=== PATIENT | female | born 1945 | race Caucasian/White ===

== ENCOUNTER 2024-08-09 08:25 | Day surgery (SDC) | payer MEDICARE, SELFPAY ==
--- OUTSIDE RECORDS SUMMARY | 2024-07-09 12:35 | XMS_ITS | Continuity of Care Document ---
Author Organization [facility] Address [address] [address]- [facility] Name Relationship Address Phone LOGAN BORGES spouse Unknown Unavailab le COLBY BORGES child Unknown Unavailable Care Team Providers Care Therapeutic Recreation Specialist Name Role Phone Marco CRYSTAL MOUNTER, Demetra Garcia Primary Care Physician Encounter [facility] Date(s): 06/28/24 - 07/05/24 [place] [id number] [place] [address]- Attending Physician: Trina Duran Admitting Physician: Trina Duran Referring Physician: Trina Duran Encounter Type: Office Visit Allergies, Adverse Reactions, Alerts Substance Criticality Severity Reaction Reaction Severity Status ciprofloxacin 1 possible del erium might have been zolpidem delerium Active doxycycline unknown Active amoxicillin 2 lip swelling rash Active azithromycin 3 Activ e predniSONE chest pain Active diclofenac severe stomach cramps Active penicillins 4 hives Active Voltaren Topical nausea Act adela ertapenem makes me go in sane vertigo Active 1unsure if zolpidem or cipro caused delerium 2Tolerates cefoxitin 3violent N/V, diarrhea 4Tolerates cefoxitin Immunizations Given and Recorded Vaccine Date Status Refusal Reason SARS-CoV-2(COVID-19)mRNA-LNP vac([id number]) 02/09/24 Recorded SARS-CoV-2(COVID-19)mRNA-LNP vac([id number]) 01/23/23 Recorded influenza virus vaccine, inactivated 12/25/23 Give n influenza virus vaccine, inactivated 12/26/22 Kilo rded influenza virus vaccine, inactivated 02/01/22 Kilo rded influenza virus vaccine, inactivated 01/16/21 Kilo rded influenza virus vaccine, inactivated 01/25/19 Give n influenza virus vaccine, inactivated 01/18/16 Give n influenza virus vaccine, inactivated 01/23/15 Kilo rded influenza virus vaccine, inactivated 01/19/14 Kilo rded influenza virus vaccine, inactivated 1 02/04/13 Gi margo influenza virus vaccine, inactivated 2 12/23/11 Gi margo influenza virus vaccine, inactivated 3 01/22/11 Gi margo influenza virus vaccine, inactivated 12/19/09 Give n pneumococcal 20-valent conjugate vaccine 4 09/26/22 Given [id number] bivalent booster vax 04/02/22 Recorded SARS-CoV-2 (COVID-19) mRNA BNT-162b2 vac 06/26/21 Recorded SARS-CoV-2 (COVID-19) mRNA BNT-162b2 vac 01/16/21 Recorded SARS-CoV-2 (COVID-19) mRNA BNT-162b2 vac 06/07/20 Recorded SARS-CoV-2 (COVID-19) mRNA BNT-162b2 vac 06/07/20 Recorded SARS-CoV-2 (COVID-19) mRNA BNT-162b2 vac 05/17/20 Recorded SARS-CoV-2 (COVID-19) mRNA BNT-162b2 vac 05/16/20 Recorded Influenza Virus Vaccine (oldterm) 12/20/19 Recorde d Influenza Virus Vaccine (oldterm) 5 03/26/18 Given Influenza Virus Vaccine (oldterm) 6 11/30/08 Given Influenza Virus Vaccine (oldterm) 12/22/06 Given pneumococcal 23-valent vaccine 09/30/18 Given zoster vaccine, inactivated 06/11/18 Recorded zoster vaccine, inactivated 7 12/20/17 Recorded Diphtheria/Tet/Pertussis, Acel (oldterm) 8 03/26/18 Given Hepatitis A Adult Vaccine 06/29/15 Given pneumococcal 13-valent vaccine 02/25/14 Given influ virus vac, H1N1, inactive(oldterm) 9 01/30/12 Given Tet/Diphth/Acel, Pertussis (oldterm) 02/24/08 Give n Influenza Inactive (IM) (oldterm) 02/24/08 Given Pneumococcal Vaccine (oldterm) 03/24/05 Given Tetanus Toxoid Vaccine (oldterm) 03/24/98 Given 1Admin Note: [facility] pt states she got it a week and a half ago 2Admin Note: [employer]EMPL[employer] 3Admin Note: work 4Result Comment: [id number] 5Admin Note: left arm 6Admin Note: [employer] [facility] 7[facility] History[facility] 8Admin Note: right arm 9Admin Note: rcvd elsewhere Medications apixaban 5 mg oral tablet 1 tablet = 5 mg, By Mouth, 2 times a day, # 180 tablet, 1 Refills, Maintenance, 12/25/23 8:45:00 AM EDT, Tablet, [facility]/pharmacy #[id number], 167.5, cm, 12/25/23 8:24:00 EDT, Height, 63, kg, 11/06/23 15:15:00 EDT, Dry Weight Start Date: 12/25/23 Stop Date: 06/22/24 Status: Ordered Quantity: 180.0 Unit: tablet Repeat number: 2 levothyroxine 0.1 mg oral tablet 1 tablet, By Mouth, Daily, # 90 tablet, 1 Refills, Maintenance, 03/21/24 11:47:00 AM EST, [facility]/pharmacy #[id number], 170, cm, 03/10/24 12:28:00 EST, Height, 64.6, kg, 03/04/24 11:43:00 EST, Dry Weight Start Date: 03/21/24 Status: Ordered Quantity: 90.0 Unit: tablet Repeat number: 2 LORazepam 0.5 mg oral tablet 1 tablet = 0.5 mg, By Mouth, Daily, PRN as needed for anxiety, Do NOT take on the same day that youtake morphine, # 30 tablet, 2 Refills, Maintenance, 03/01/24 8:43:00 PM EST, [facility]/pharmacy #[id number], 170, cm, 02/17/24 15:17:00 EST, Height, 64.9, kg, 02/10/24 10:58:00 EST, Dry Weight Start Date: 03/01/24 Status: Ordered Quantity: 30.0 Unit: tablet Repeat number: 3 Multivitamin 0 Refills, Maintenance, 02/17/24 3:16:00 PM EST, Partial fill upon patient request if the prescription is for a schedule II opioid drug. Start Date: 02/17/24 Status: Ordered Repeat number: 1 Tylenol 325 mg oral tablet 650 mg, 2, tablet, By Mouth, Every 4 hours, Refills 0, Maintenance, 05/12/24 10:17:00 AM EST, Partial fill upon patient request if the prescription is for a schedule II opioid drug. 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 Active Non-ischemic cardiomyopathy Confirmed Active Chemotherapy-induced nausea and vomiting Confirmed Active CLL (chronic lymphocytic leukemia) 2 Confirmed Active Diverticulitis sgmoid abscess 3 Confirmed 08/18/16 Active Transaminitis Confirmed Active Maintenance chemotherapy Confirmed Active Anxiety, generalized Confirmed Active Generalized arthritis Confirmed Active Graves disease Confirmed Active History of bilateral total hip arthroplasty Confirmed Active HTN (hypertension) Confirmed Active Hypothyroid 4 Confirmed Active Ileostomy present Confirmed Active 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 Confirmed Active Low back pain without sciatica Confirmed Active Recurrent carcinoma of ovary Confirmed Active Metastasis to liver Confirmed Active Numbness of right anterior thigh Confirmed Active Osteoarthrosis, hip Confirmed Active Osteopenia 5 Confirmed Active Proteinuria Confirmed Active Renal anomaly 6 Confirmed Active Stercoral colitis Confirmed Active Thrombocytopenia Confirmed Active 1after hyperthyroidism resolved 2foolowed by hematology 3per CT 4GRAVES RUSSO 5neg 1.6 spine;normal hip;farx 7.9/0.9 6needs ultraSOUND Social History Social History Type Response Smoking Status Never smoker entered on: 04/03/15 Sex Sex Representation Female (finding) Patient Care team information Care Team Personnel Name: Jaky Parrish Position: [facility] Onco RN Member Role: Primary Care Nurse Name: Amy Bailey RN Position: [facility] RN Member Role: Primary Care Nurse Name: Gertrudis Elias RN Position: [facility] RN Member Role: Primary Care Nurse Name: Dc Chavez RN Position: [facility] RN Member Role: Primary Care Nurse Name: Enid Zimmerman RN Position: [facility] RN Supv Member Role: Primary Care Nurse Name: Jaky Branham Position: S RN Member Role: Primary Care Nurse Name: Demetra Lara NP Position: [facility] PCO Associate Professional Member Role: PCP Address: [address] [place] [id number]- Telecom: Name: Jacek Phillips RN Position: [facility] RN Member Role: Primary Care Nurse Name: Denise Ward RN Position: [facility] RN Member Role: Primary Care Nurse Name: Byron Granger LPN Position: [facility] RN Member Role: Primary Care Nurse Name: Shirley Pires RN Position: [facility] AMB Nurse Member Role: Primary Care Nurse Name: Samir Covington Jr, RN Position: [facility] RN Member Role: Primary Care Nurse Name: Boby Kline RN Position: [facility] RN Member Role: Primary Care Nurse Name: Pradeep Doyle RN Position: [facility] AMB Nurse Member Role: Primary Care Nurse Name: Lianet Pang RN Position: [facility] RN Member Role: Primary Care Nurse Name: Katelynn Westbrook RN Position: [facility] Outreach Member Role: Primary Care Nurse Name: Cuba Osorio RN Position: [facility] RN Member Role: Primary Care Nurse Name: Jill Rowan RN Position: [facility] Onco RN Member Role: Primary Care Nurse Name: Mariam Elliott RN Position: [facility] Onco RN Member Role: Primary Care Nurse Name: Elis Wu RN Position: [facility] RN Member Role: Primary Care Nurse Name: Jeanne Gonzalez RN Position: [facility] Onco RN Member Role: Primary Care Nurse Name: Erika Marques RN Position: [facility] Onco RN Member Role: Primary Care Nurse Name: Jaky James LPN Position: [facility] RN Member Role: Primary Care Nurse Name: Nuria Barr Position: [facility] RN Member Role: Primary Care Nurse Name: Francisco Ray RN Position: [facility] RN Member Role: Primary Care Nurse Name: Riley Looney RN Position: [facility] RN Member Role: Primary Care Nurse Name: Tomer Chaves RN Position: [facility] RN Member Role: Primary Care Nurse Name: Kalin Sandoval RN Position: [facility] Onco RN Member Role: Primary Care Nurse Name: Teresa Hassan RN Position: [facility] Onco RN Member Role: Primary Care Nurse Name: Tucker Lynn RN Position: [facility] SN RN Member Role: Primary Care Nurse Name: Enid Francis RN Position: [facility] Onco RN Member Role: Primary Care Nurse Name: Gaby Sandra RN Position: [facility] RN Member Role: Primary Care Nurse Name: Gabby Tee RN Position: [facility] RN Member Role: Primary Care Nurse Name: Violette Seals RN Position: [facility] Onco RN Member Role: Primary Care Nurse Name: Shahrzad Ashley LPN Position: [facility] RN Member Role: Primary Care Nurse Name: Susan RNMira Position: [facility] RN Member Role: Primary Care Nurse Name: Gregg Mello RN Position: [facility] RN Member Role: Primary Care Nurse Name: Trina Mello RN Position: [facility] Tempering Kiln Tender Member Role: Primary Care Nurse Name: Yen Blunt RN, I Position: [facility] RN Member Role: Primary Care Nurse Care Team Related Persons Name: LOGAN BORGES Name: COLBY BORGES Insurance Providers Guarantor name: JEANNE BORGES Health Plan Information #: 2 Payer: MED[employer] Member Number: [id number] Policy Number: NA Group Number: NA Health Plan Information #: 1 Payer: MEDICARE PART B OUTPT Member Number: [id number] Policy Number: NA Group Number: NA
--- OUTSIDE RECORDS SUMMARY | 2024-07-09 12:35 | XMS_ITS | Data Portability ---
Author Organization [facility], [facility] Address [address] [place] [address] Care Team Providers Care Parliamentary Counsel Name Role Phone RASHELLILISANTYARSENUR Primary Care Provider Unavaila ble Assessment Encounter Date Assessment Date Assessment LastModified by Organization Details LastModified Time 11/08/2015 11/08/2015 Patient is managing left hip pain, continuing with icing at night, TP positioning and stretching ex. She will call for PT follow up after her visit with Dr Parker. Not available 11/08/2015 16:49:27 03/14/2016 03/14/2016 Patient is a 70 year old female with findings most consistent with left hip pain and mobility limitations post THR. Optimal score for difficulty with positioning is 62%. Patient has significant functional limitation in their activities of daily living and exercise capacity. Patient Goals: resume walking, workouts without pain; resume positioning in supine, bending, negotiating stairs without pain. Clinical Goals: 1. Demonstrate symmetric pain free active, passive and resisted motions of the trunk and lower extremities. 2. Demonstrate sufficient muscular endurance of core and LEs to meet functional demands. 3. Reduce Optimal score for difficulty with positioning to 0%. Skilled physical therapy is needed to safely and progressively address impairments and functional limitations as outlined above. Treatment Plan: Patient to return 1-2 times per week for 6-8 weeks. We expect significant improvement in pain, impairment and function in this time frame. Treatment to Include: Therapeutic exercise and manual therapy and modalities as needed. Not available 03/14/2016 12:39:22 03/20/2016 03/20/2016 Patient continues with tenderness along scar left hip. Gait with cueing improves the lateral sway in right mid stance. Core strength 4-/5. Continue with PT in 2 weeks. Not available 03/20/2016 15:49:06 03/28/2016 03/28/2016 Patient is improving in mobility and strength of left LE and trunk. Continue with HEP, follow up next week. Not available 03/30/2016 07:47:58 04/02/2016 04/02/2016 Patient has been seen x4 for rehab post left THR. She has full ROM, able to perform closed chain ex and will continue with water ex, hopping, side hopping and swimming. Optimal score for positioning is 1- <20% difficulty due to discomfort with left sidelying. She will continue with HEP and is discharged from PT at this time. Not available 04/02/2016 13:23:55 Plan of Treatment Reminders Order Date Submit Date Provider Last Modified By Organization Details Last Modified Time Details Appointments None record ed. Lab None record ed. Referral None record ed. Procedures None record ed. Surgeries None record ed. Imaging None record ed. Medication Orders None record ed. Patient TargetsNo targets recorded. Patient InstructionsNo instructions recorded. Reason for Referral None Reported. Problems Name Problem SNOMED Code Status Onset Date Resolution Date Notes Provider Name and Address Organization Details Recorded Time Hip pain 70809663 Active 03/14/20 16 Sandra Mccullough, PT [address] [place], [address] , [facility] 03/14/2016 12:35:33 Problem Notes None recorded. Procedures Surgical History Date Name Laterality Status Provider Name and Address Organization Details Recorded Time 7 14904: Therapeutic Exercise completed Sandra Mccullough, PT [address] [place], [address], [facility] 04/02/2016 13:24:25 7 49534: Therapeutic Exercise completed Sandra Mccullough, PT [address] [place], [address], [facility] 03/30/2016 07:44:48 7 56537: Manual Therapy completed Sandra Mccullough, PT [address] [place], [address], [facility] 03/30/2016 07:44:40 6 96569: Therapeutic Exercise completed Sandra Mccullough, PT [address] [place], [address], [facility] 03/20/2016 15:44:20 6 52395: PT Evaluation completed Sandra Mccullough, PT [address] [place], [address], [facility] 03/14/2016 12:35:12 6 79334: Therapeutic Exercise completed Sandra Mccullough, PT [address] [place], [address], [facility] 11/08/2015 16:31:07 6 77598: Ultrasound (1:1) completed Sandra Mccullough, PT [address] [place], [address], [facility] 11/08/2015 16:31:02 6 68339: Therapeutic Exercise completed Sandra Mccullough, PT [address] [place], [address], [facility] 11/06/2015 17:30:19 6 94228: Ultrasound (1:1) completed Sandra Mccullough, PT [address] [place], [address], [facility] 11/06/2015 17:30:10 6 94812: Therapeutic Exercise completed Sandra Mccullough, PT [address] [place], [address], [facility] 10/30/2015 13:57:38 6 80517: Manual Therapy completed Sandra Mccullough, PT [address] [place], [address], [facility] 10/30/2015 13:57:28 6 21462: Ultrasound (1:1) completed Sandra Mccullough, PT [address] [place], [address], [facility] 10/30/2015 13:56:10 6 41094: Manual Therapy completed Sandra Mccullough, PT [address] [place], [address], [facility] 10/26/2015 10:10:45 6 77186: Ultrasound (1:1) completed Sandra Mccullough, PT [address] [place], [address], [facility] 10/26/2015 10:09:45 6 73270: Therapeutic Exercise completed Sandra Mccullough, PT [address] [facility], [address], [facility] 10/25/2015 13:22:55 6 05995: Manual Therapy completed Sandra Mccullough, PT [address] [facility], [address], [facility] 10/25/2015 13:22:47 6 40382: Ultrasound (1:1) completed Sandra Mccullough, PT [address] [facility] [place], [address], [facility] 10/25/2015 13:17:42 6 26321: Therapeutic Exercise completed Sandra Mccullough, PT [address] [facility] [place], [address], [facility] 10/18/2015 10:29:31 6 76074: Ultrasound (1:1) completed Sandra Mccullough, PT [address] [place], [address], [facility] 10/18/2015 10:29:26 6 99982: Therapeutic Exercise completed Sandra Mccullough, PT [address] [facility] [place], [address], [facility] 10/16/2015 16:32:47 6 89088: Ultrasound (1:1) completed Sandra Mccullough, PT [address] [place], [address], [facility] 10/16/2015 16:32:44 6 27252: PT Evaluation completed Sandra Mccullough, PT [address] [place], [address], [facility] 10/09/2015 19:01:11 5 <strong>Pain</s ashok> Assessment and Follow-up (G8730) completed Pao Pritchard, OT [address] [place], [address], [facility] 04/27/2014 13:33:32 5 <strong>Falls</ strong> Risk Assessment - No Risk (1101F) completed Pao Surjit Handyum, OT [address] [place], [place], , [facility] 04/27/2014 13:33:32 5 <strong>Functio nal</strong> Outcome w/ POC (G8539) completed Pao Surjit Handyum, OT [address] [place] [address], , [facility] 04/27/2014 13:33:32 5 <strong>Tobacco </strong> Non-User (1036F) completed Pao Surjit Handyum, OT [address] [place] [address], , [facility] 04/27/2014 13:33:32 5 <strong>BMI</st dominga> Normal - No Follow-up Required (G8420) completed Pao Handyum, OT [address], [place], , [facility] 04/27/2014 13:33:32 5 Current <strong>Medicat ions</strong> not Documented, Reason not Given (G8428) completed Pao Handyum, OT [address] [place], [place], , [facility] 04/27/2014 13:33:32 Imaging Results None recorded. Procedure Notes None recorded. Medical Equipment None Reported. Allergies Allergen ID Allergen Name Allergen Category Reaction Reaction Severity Criticality Documentation Date Start Date Code Code System Note Provider Name and Address Organization Details Recorded Time 484051 Flagyl medicatio n Not available Not available Not available 07/03/2015 6 RxNorm Nikita Hinojosa DPM [address] [place], [place] [address], [address], [facility] 6 10:50:48 926027 Cipro medicatio n Not available Not available Not available 07/03/2015 3 RxNorm Nikita Hinojosa DPM [address] [place], [place] [address], [address], [facility] 6 10:50:48 Medications Name Sig Start Date Stop Date Status Note LastModified by Organization Details LastModified Time levothyroxine active Not Available Not Available Not Available multivitamin active Not Available Not Available Not Available Vitals None Recorded Social History None recorded. Functional Status None recorded. Mental Status None recorded. Family History Nothing Reported. Medical History No medical history recorded. Gynecological HistoryNo gynecological history recorded. Obstetrics History GPAL:G 0 P 0 0 0 0 Past Encounters Encounter ID Performer Location Encounter Start Date Encounter Closed Date Diagnosis/Indication Diagnosis SNOMED-CT Code Diagnosis ICD10 Code Diagnosis Note [id number] [facility], [address] [address] 04/27/2014 12:17:38 04/28/2014 08:57:47 Fracture of distal end of radius 805468564 [id number] Pao Pritchard, OT Physical Therapy, [address] [address] 05/04/2014 09:32:33 05/04/2014 12:11:44 Fracture of distal end of radius 297571094 [id number] Pao Pritchard, OT Physical Therapy, [address] [address] 05/10/2014 09:59:59 05/11/2014 09:25:45 Fracture of distal end of radius 183872328 [id number] Pao Pritchard, OT Physical Therapy, [address] [address] 05/12/2014 10:02:05 05/12/2014 14:57:42 Fracture of distal end of radius [id number] Physical Therapy, [address] [address] 05/17/2014 10:25:32 05/18/2014 09:28:24 Fracture of distal end of radius 131215295 [id number] Pao Pritchard, OT Physical Therapy, [address] [address] 05/24/2014 09:57:49 05/24/2014 16:42:32 Fracture of distal end of radius 724959069 [id number] Pao Pritchard, OT Physical Therapy, [address] [address] 06/01/2014 10:01:05 06/02/2014 10:55:36 Fracture of distal end of radius 431673562 [id number] Pao Pritchard, OT Physical Therapy, [address] [address] 06/14/2014 09:57:06 06/14/2014 12:04:52 Fracture of distal end of radius 017754929 [id number] Pao Pritchard, OT Physical Therapy, [address] [address] 06/22/2014 14:51:12 06/22/2014 16:25:38 Fracture of distal end of radius [id number] [id number] Physical Therapy, [address] [address] 06/29/2014 16:23:16 06/30/2014 10:25:27 Fracture of distal end of radius 552910349 [id number] Nikita Hinojosa DPM Podiatry, [address] [address] 07/03/2015 09:54:29 07/03/2015 10:46:26 Metatarsalgia 84923591 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 61686691 M21.6X9 [id number] Nikita Hinojosa DPM Podiatry, [address] [address] 08/15/2015 08:23:44 08/15/2015 08:53:54 Metatarsalgia 00085797 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 08685938 M21.6X9 [id number] Nikita Hinojosa DPM Podiatry, [address] [address] 09/22/2015 08:55:52 09/22/2015 09:18:02 Metatarsalgia 22671037 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 00996377 M21.6X9 [id number] Sandra Mccullough PT Physical Therapy, [address] [address] 10/09/2015 16:27:12 10/10/2015 08:29:38 Hip pain 66683083 M25.620 [id number] Nikita Hinojosa DPM Podiatry, [address] [address] 10/13/2015 09:39:22 11/06/2015 16:38:09 Metatarsalgia 08782703 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 51342082 M21.6X9 [id number] Sandra Mccullough, PT Physical Therapy, [address] [place] [address] 10/16/2015 15:47:05 10/16/2015 16:54:10 Hip pain 67198505 M25.579 [id number] Sandra Mccullough, PT Physical Therapy, [address] [place] [address] 10/18/2015 09:25:24 10/18/2015 10:46:03 Hip pain 68089511 M25.044 [id number] Sandra Mccullough, PT Physical Therapy, [address] [place] [address] 10/24/2015 13:01:37 10/25/2015 13:45:27 Hip pain 58354496 M25.928 [id number] Sandra Mccullough, PT Physical Therapy, [address] [place] [address] 10/26/2015 08:55:29 10/26/2015 09:29:57 Hip pain 15694320 M25.155 [id number] Sandra Mccullough, PT Physical Therapy, [address] [place] [address] 10/30/2015 09:00:20 10/30/2015 14:29:35 Hip pain 68510607 M25.475 [id number] Sandra Mccullough, PT Physical Therapy, [address] [place] [address] 11/06/2015 16:52:24 11/07/2015 09:53:08 Hip pain 79070501 M25.634 [id number] Sandra Mccullough, PT Physical Therapy, [address] [place] [address] 11/08/2015 15:57:05 11/09/2015 09:37:37 Hip pain 23253526 M25.172 [id number] Sandra Mccullough, PT Physical Therapy, [address] [place] [address] 03/14/2016 08:01:24 03/14/2016 14:29:28 Hip pain 31144176 M25.884 [id number] Sandra Mccullough, PT Physical Therapy, [address] [address] 03/20/2016 15:17:01 03/20/2016 16:03:47 Hip pain 01500898 M25.105 [id number] Sandra Mccullough PT Physical Therapy, [address] [place] [address] 03/28/2016 08:55:27 04/01/2016 11:41:43 Hip pain 54153824 M25.480 [id number] Sandra Mccullough PT Physical Therapy, [address] [address] 04/02/2016 12:58:11 04/02/2016 14:10:56 Hip pain 48573242 M25.552 Health Concerns Section Related Observation LastModified by Organization Detai ls LastModified Time None Recorded Concern Status LastModified by Organization Details LastModified Time None Recorded Advance Directives Directive None Recorded Payers Encounter Date Sequence Insurance Name Policy Number Policy Crow Covered Member ID Crow Member ID Guarantor Name 11/08/2015 1 MEDICARE B-CO: [employer] Mariama K Trainer [id number] Mariama K Trainer 11/08/[address] [facility] - ENHANCE (MEDICARE SUPPLEMENT) Mariama K Trainer [id number] Mariama K Trainer 03/14/2016 1 MEDICARE B-CO: [employer] Mariama K Trainer [id number] Mariama K Trainer 03/14/[address] [facility] - ENHANCE (MEDICARE SUPPLEMENT) Mariama K Trainer [id number] Mariama K Trainer 03/20/2016 1 MEDICARE B-CO: [employer] Mariama K Adali [id number] Mariama K Adali 03/20/[address] [facility] - ENHANCE (MEDICARE SUPPLEMENT) Mariama K Adali [id number] Mariama K Trainer 03/28/2016 1 MEDICARE B-CO: [employer] Mariama K Adali [id number] A Mariama K Adali 03/28/[address] [facility] - ENHANCE (MEDICARE SUPPLEMENT) Mariama K Trainer [id number] Mariama Chen Adali 04/02/2016 1 MEDICARE B-CO: [facility] Mariama Chen Adali [id number] A Mariama Chen Trainer 04/02/2016 2 [facility] - ENH[facility] (MEDICARE SUPPLEMENT) Mariama Chen Adali [id number] Mariama Chen Trainer Notes Date Note Type Note Provider Name and Address Organization Details Recorded Time 03/14/2016 text/html Patient presents with chief c/o left hip pain s/p THR Jan 29, 2016. She received PT and cortisone inj into the hip earlier this year, prior to her Nov surgery. She has some difficulty positioning at night, interfering with her sleep at times. She has difficulty with bending, squating and kneeling. Climbing stairs and walking long distances is difficult. She received some PT after her surgery and presents today for gait training and strengthening. She enjoys walking and gardening. She believes her health is very good at present. Sandra Mccullough, PT [address] [place], [address], [facility] 03/14/2016 13:00:42 OBGyn Episode No OBEpisode recorded.
[2024-08-03 08:31] VITALS: BMI 22.8
--- NOTE | 2024-08-05 15:14 | HO.ANESPROP2 ---
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 Proteinuria Presence of permanent cardiac pacemaker Osteopenia Osteoarthrosis Numbness Non-ischemic cardiomyopathy Metastasis to liver Maintenance chemotherapy Back pain On anticoagulant therapy Ileostomy present Thyroid disease HTN (hypertension) Graves' disease Arthritis Abscess Diverticulitis of sigmoid colon CLL (chronic lymphocytic leukemia) History of chemotherapy Carcinoma of right ovary, stage 4 Atrial fibrillation Anxiety Surgical History Surgical History H/O colonoscopy Hx of laparoscopy History of permanent cardiac pacemaker placement History of radiofrequency ablation procedure for cardiac arrhythmia History of bilateral total hip arthroplasty S/P JEANNIE-BSO Social History Social History Patient Tobacco Use Status: Never used Tobacco Use of substances other than those prescribed or required for medical reasons: No Advance Directives: No Advance Directives Information Provided: Yes Advance Directives on File: No Patient : No : No Meds Allergies Allergy/AdvReac Type Severity Reaction Status Date / Time amoxicillin Allergy Swelling Verified 08/03/24 08:26 azithromycin Allergy Unknown Verified 08/03/24 08:26 ciprofloxacin Allergy Confusion Verified 08/03/24 08:26 diclofenac [From Voltaren] Allergy Nausea Verified 08/03/24 08:26 doxycycline Allergy Unknown Verified 08/03/24 08:26 ertapenem Allergy Agitated Verified 08/03/24 08:26 Penicillins Allergy Hives Verified 08/03/24 08:26 prednisone Allergy Chest Pain Verified 08/03/24 08:26 Home Medications ?Medication ?Instructions ?Recorded ?Confirmed ?Last Taken ?Type acetaminophen 325 mg tablet 650 mg PO Q4H PRN Pain 08/03/24 08/03/24 Unknown History apixaban 5 mg tablet (Eliquis) 5 mg PO BID 08/03/24 08/03/24 08/09/24 History levothyroxine 100 mcg tablet 100 mcg PO DAILY 08/03/24 08/03/24 08/09/24 History lorazepam 0.5 mg tablet 0.5 mg PO DAILY PRN Anxiety 08/03/24 08/03/24 Unknown History multivitamin 1 tab PO DAILY 08/03/24 08/03/24 Unknown History Exam Height,Weight and Vital Signs: Height 5 ft 6.93 in Weight 65.8 kg Assessment and Plan Assessment Anesthesia Assessment: Chart Reviewed Documented by User: Luz Mario MD 08/09/24 09:48 PMFSH Past Medical History Medical History Port-A-Cath in place Transaminitis Thrombocytopenia 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 Proteinuria Presence of permanent cardiac pacemaker Osteopenia Osteoarthrosis Numbness Non-ischemic cardiomyopathy Metastasis to liver Maintenance chemotherapy Back pain On anticoagulant therapy Ileostomy present Thyroid disease HTN (hypertension) Graves' disease Arthritis Abscess Diverticulitis of sigmoid colon CLL (chronic lymphocytic leukemia) History of chemotherapy Carcinoma of right ovary, stage 4 Atrial fibrillation Anxiety Family History Family history of problems with anesthesia: No Surgical History Surgical History H/O colonoscopy Hx of laparoscopy History of permanent cardiac pacemaker placement History of radiofrequency ablation procedure for cardiac arrhythmia History of bilateral total hip arthroplasty S/P JEANNIE-BSO History of Problems with Anesthesia: No Social History Social History Patient Tobacco Use Status: Never used Tobacco Use of substances other than those prescribed or required for medical reasons: No Advance Directives: No Advance Directives Information Provided: Yes Advance Directives on File: No Patient : No : No Meds Allergies Allergy/AdvReac Type Severity Reaction Status Date / Time amoxicillin Allergy Swelling Verified 08/03/24 08:26 azithromycin Allergy Unknown Verified 08/03/24 08:26 ciprofloxacin Allergy Confusion Verified 08/03/24 08:26 diclofenac [From Voltaren] Allergy Nausea Verified 08/03/24 08:26 doxycycline Allergy Unknown Verified 08/03/24 08:26 ertapenem Allergy Agitated Verified 08/03/24 08:26 Penicillins Allergy Hives Verified 08/03/24 08:26 prednisone Allergy Chest Pain Verified 08/03/24 08:26 Home Medications ?Medication ?Instructions ?Recorded ?Confirmed ?Last Taken ?Type acetaminophen 325 mg tablet 650 mg PO Q4H PRN Pain 08/03/24 08/03/24 Unknown History apixaban 5 mg tablet (Eliquis) 5 mg PO BID 08/03/24 08/03/24 08/09/24 History levothyroxine 100 mcg tablet 100 mcg PO DAILY 08/03/24 08/03/24 08/09/24 History lorazepam 0.5 mg tablet 0.5 mg PO DAILY PRN Anxiety 08/03/24 08/03/24 Unknown History multivitamin 1 tab PO DAILY 08/03/24 08/03/24 Unknown History Exam Airway Mallampati Class: II TM Dist: >3cm Neck ROM: Limited Heart: rrr Lungs: cta Assessment and Plan Assessment Anesthesia Assessment: Anesthesia Plan Discussed Final Anesthetic Review Family History of Problems with Anesthesia: No History of Problems with Anesthesia: No NPO: Yes ASA Class: III Final Preanesthetic Review: No Changes in Pt Med Stat, Meds/Allgs Chart Reviewed, Consent Obtained/Reviewed and Anes Risks/Benef Reviewed Patient Risk: Intermediate Procedure Risk: Low Anesthetic Plan Anesthetic Plan: MAC: Disposition: Standard PACU
[2024-08-09 09:26] VITALS: BP 126/72; PULSE 76; RESP 16; TEMP 36.5; O2SAT 100
[2024-08-09] MEDS: Tetracaine HCl/PF 0.5% Oph Sol 4 ML DROPS 1 DROP EYE-LEFT (09:29)
[2024-08-09] MEDS: Lactated Ringers 500 ML 50 ML IV (09:30)
[2024-08-09] MEDS: Cyclopentolate 1 % Ophth Sol 2 ML DRPBTL 1 DROP EYE-LEFT ×3 (09:32→09:40)
[2024-08-09] MEDS: Tropicamide 1 % Ophth Sol 3 ML BTL 1 DROP EYE-LEFT ×3 (09:33→09:42)
[2024-08-09] MEDS: Ketorolac Tromethamine 0.5% Op 5 ML DROPS 1 DROP EYE-LEFT ×3 (09:34→09:43)
[2024-08-09] MEDS: Phenylephrine HCL 2.5% Oph SoL 2 ML BOTTLE 1 DROP EYE-LEFT ×3 (09:36→09:43)
--- NOTE | 2024-08-09 10:31 | MHC.SHP ---
Pre-Procedural Eval Section A - 24 Hr Update-Section A only Date of Service: 08/09/24 The patient is an INPATIENT: No Changes since office visit: No Cold of Flu in the past 2 weeks, No New Medical Problems, No Changes in Medication and No Patient answered all questions The patient has been examined within 24 hours of the surgical procedure. The History & Physical has been completed within 30 days and I have reviewed it.: Yes Section B - Complete if H&P > 30 days Chief Complaint: Age-related nuclear cataract, left eye Allergies: Allergies Allergy/AdvReac Type Severity Reaction Status Date / Time amoxicillin Allergy Swelling Verified 08/03/24 08:26 azithromycin Allergy Unknown Verified 08/03/24 08:26 ciprofloxacin Allergy Confusion Verified 08/03/24 08:26 diclofenac [From Voltaren] Allergy Nausea Verified 08/03/24 08:26 doxycycline Allergy Unknown Verified 08/03/24 08:26 ertapenem Allergy Agitated Verified 08/03/24 08:26 Penicillins Allergy Hives Verified 08/03/24 08:26 prednisone Allergy Chest Pain Verified 08/03/24 08:26 Plan Diagnosis/Plan: Unchanged I have reviewed the history and physical and performed a pertinent physical examination on my patient. No changes have occurred unless specified. Time Spent With Patient Time: Total time managing care of this patient today ____ minutes.
--- NOTE | 2024-08-09 10:32 | HO.PNOPHT ---
Ophthalmology Procedure Procedure Date of Service: 08/09/24 Ophthalmology Viscoelastic: Healon Duet Dual Pack Pro Ophthalmology Lenses: IOL Acrysof MP - [id number] (14) Procedure Notes: PREOPERATIVE DIAGNOSIS: Decreased visual acuity left eye secondary to cataract POSTOPERATIVE DIAGNOSIS: Same PROCEDURE: Left cataract extraction with intraocular lens insertion SURGEON: Jame Calderon M.D. ANESTHESIA: Topical/MAC ESTIMATED BLOOD LOSS: None COMPLICATIONS: None After obtaining informed consent, the patient was brought to the operation room suite and placed in the supine position. After adequate sedation per anesthesia, topical drops of Tetracaine were given to the left eye. The eye was then prepped and draped in the usual sterile fashion. The operating room microscope was then positioned over the operative eye and a lid speculum placed. A paracentesis was created. Viscoelastic was then instilled into the anterior chamber. A three plane incision was then created temporally, utilizing a 2.85 mm keratome. Capsulotomy forceps were then utilized to create a circular tear capsulotomy. Hydrodissection and hydrodelineation were carried out until adequate mobilization of the nucleus occurred. Phacoemulsification was then utilized to remove the dense central nucleus followed by removal of the cortical material utilizing the automated aspiration irrigation unit. Viscoat elastic was instilled into the posterior capsular bag followed by placement of a posterior chamber intraocular lens without difficulty. The residual Viscoat elastic was then removed utilizing the automated IA machine. The wound was check and found to be watertight. The patient tolerated the procedure well and the lid speculum was removed. Intracameral injection of Vigamox 0.1 mL followed by a subtenon injection of Kenalog-40 0.2 mL were administered. The patient will be seen in the a.m.
[2024-08-09 10:37] LABS: Hematocrit 39.9 % (37.0-47.0); Hemoglobin 11.5 g/dl (12.0-16.0); Mean Corpuscular HGB Conc 28.8 g/dl (31.0-35.0); Mean Corpuscular Hemoglobin 28.3 pg (27.0-33.0); Mean Platelet Volume 9.5 fL (9.4-12.3); Red Blood Count 4.07 X10*6/uL (4.20-5.50); Red Cell Distribution Width 15.5 % (11.0-16.0)
[2024-08-09 10:42] LABS: White Blood Count 191.9 X10*3/uL (4.8-10.8)
[2024-08-09 11:23] LABS: Platelet Count 69 X10*3/uL (160-400)
[2024-08-09 11:56] VITALS: BP 122/74; PULSE 63; RESP 16; TEMP 36.6; O2SAT 97
== END 2024-08-09 12:10 | disposition home or self-care (01) ==
PROVIDERS: Anesthesiology; PCP Nurse Practitioner Family; Visit Provider Ophthalmology
PROC: (CPT 66985; principal; 2024-08-09 11:00)
DX: H25.12 Age-related nuclear cataract, left eye (principal); H52.4 Presbyopia; Z83.511 Family history of glaucoma; H40.013 Open angle with borderline findings, low risk, bilateral; H18.413 Arcus senilis, bilateral; H43.393 Other vitreous opacities, bilateral; E05.00 Thyrotoxicosis with diffuse goiter without thyrotoxic crisis or storm; C91.50 Adult T-cell lymphoma/leukemia (HTLV-1-associated) not having achieved remission; C78.7 Secondary malignant neoplasm of liver and intrahepatic bile duct; I10 Essential (primary) hypertension; I48.91 Unspecified atrial fibrillation; I42.8 Other cardiomyopathies; Z92.21 Personal history of antineoplastic chemotherapy; Z88.0 Allergy status to penicillin; Z88.1 Allergy status to other antibiotic agents; Z88.5 Allergy status to narcotic agent; Z79.01 Long term (current) use of anticoagulants; Z79.899 Other long term (current) drug therapy
CPT/HCPCS: 66984; 36415; 85027; J2250; J3301; V2630

== ENCOUNTER 2024-08-23 06:21 | Day surgery (SDC) | payer MEDICARE, SELFPAY ==
[2024-08-03 08:38] VITALS: BMI 22.8
--- OUTSIDE RECORDS SUMMARY | 2024-08-10 14:01 | XMS_ITS | Continuity of Care Document ---
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 Name Role Phone Marco LOBO, Demetra Garcia Primary Care Physician [phone] Encounter [facility] Date(s): 07/28/24 - 08/04/24 Pre Op Overflow [address], [place] [address] Attending Physician: Kg DIAMOND, Kelsey Rutherford Referring Physician: Yumiko CHRISTIAN, Jame Bee Encounter Type: Office Visit Allergies, Adverse Reactions, Alerts Substance Criticality Severity Reaction Reaction Severity Status ciprofloxacin 1 possible del erium might have been zolpidem delerium Active doxycycline unknown Active amoxicillin 2 lip swelling rash Active penicillins 3 hives Active azithromycin 4 Activ e predniSONE chest pain Active diclofenac severe stomach cramps Active Voltaren Topical nausea Act adela ertapenem makes me go in sane vertigo Active 1unsure if zolpidem or cipro caused delerium 2Tolerates cefoxitin 3Tolerates cefoxitin 4violent N/V, diarrhea Immunizations Given and Recorded Vaccine Date Status Refusal Reason SARS-CoV-2(COVID-19)mRNA-LNP vac(sie090) 02/09/24 Recorded SARS-CoV-2(COVID-19)mRNA-LNP vac(afw387) 01/23/23 Recorded influenza virus vaccine, inactivated 12/25/23 [...] pneumococcal 20-valent conjugate vaccine 4 09/26/22 Given [id number] bivalent booster vax 04/02/22 Recorded SARS-CoV-2 (COVID-19) [...] Toxoid Vaccine (oldterm) 03/24/98 Given 1Admin Note: [facility] pt states she got it a week and a half ago 2Admin Note: [employer] 3Admin Note: work 4Result Comment: [id number] 5Admin Note: left arm 6Admin Note: [employer] [facility] 7Location History: [facility] 8Admin Note: right arm 9Admin Note: rcvd elsewhere Medications apixaban 5 mg oral tablet 1 tablet = 5 mg, By Mouth, 2 times a day, # 180 tablet, 1 Refills, Maintenance, 08/03/24 1:02:00 PM EDT, Tablet, [facility]/pharmacy #[id number], 168.5, cm, 07/28/24 15:29:00 EDT, Height, 66.1, kg, 05/20/24 11:00:00 EST, Dry Weight Start Date: 08/03/24 Stop Date: 01/30/25 Status: Ordered Quantity: 180.0 Unit: tablet Repeat number: 2 levothyroxine 0.1 mg oral tablet 1 tablet, By Mouth, Daily, # 90 tablet, 1 Refills, Maintenance, 03/21/24 11:47:00 AM EST, [facility]/pharmacy #1095, 170, cm, 03/10/24 12:28:00 EST, Height, 64.6, kg, 03/04/24 11:43:00 EST, Dry Weight Start Date: 03/21/24 Status: Ordered Quantity: 90.0 Unit: tablet Repeat number: 2 LORazepam 0.5 mg oral tablet 1 tablet = 0.5 mg, By Mouth, Daily, PRN as needed for anxiety, # 30 tablet, 0 Refills, Maintenance,07/26/24 10:12:00 AM EDT, [facility]/pharmacy #1095, 168.5, cm, 07/26/24 9:26:00 EDT, Height, 66.1, kg, 05/20/24 11:00:00 EST, Dry Weight Start Date: 07/26/24 Status: Ordered Quantity: 30.0 Unit: tablet Repeat number: 1 Multivitamin 0 Refills, Maintenance, 02/17/24 3:16:00 PM [...] 4 JEANNIE OVIDIO August 2020 Confirmed Active Presence of PPMI S/P AV node ablation for afib Confirmed Active Non-ischemic cardiomyopathy Confirmed Active Chemotherapy-induced [...] 4 Confirmed Active Ileostomy present Confirmed Active FDC current use of anticoagulant Confirmed Active Low [...] 5neg 1.6 spine;normal hip;farx 7.9/0.9 6needs ultraSOUND Vital Signs Most recent to oldest [Reference Range]: 1 Height 168.5 cm (07/28/24 3:29 PM) Weight 65.8 kg (07/28/24 3:29 PM) Oxygen Saturation [94-100 %] 100 % (07/28/24 3:29 PM) Pulse Rate [55-90 bpm] 67 bpm (07/28/24 3:29 PM) Body Mass Index [18.5-24.99 kg/m2] 23.18 kg/m2 (07/28/24 3:29 PM) Systolic Blood Pressure [90-138 mm Hg] 9 9 mm Hg (07/28/24 3:29 PM) Respiratory Rate [16-30 br/min] 16 br/mi n (07/28/24 3:29 PM) Blood pressure sites Arm, left (07/28/24 3:29 PM) Weight Obtained Via Standing scale (07/28/24 3:29 PM) Social History Social History Type Response Smoking Status Never smoker entered on: 04/03/15 Sex Sex Representation Female (finding) Patient Care team information Care Team Personnel Name: Jaky Parrish Position: [facility] Onco RN Member Role: Primary Care Nurse Name: Amy Bailey RN Position: [facility] RN Member Role: Primary Care Nurse Name: Gertrudis Elias RN Position: [facility] RN Member Role: Primary Care Nurse Name: Dc Chavez RN Position: [facility] RN Member Role: Primary Care Nurse Name: Enid Zimmerman RN Position: [facility] RN Supv Member Role: Primary Care Nurse Name: Jaky Branham Position: [facility] RN Member Role: Primary Care Nurse Name: Demetra Lara NP Position: [facility] PCO Associate Professional Member Role: PCP Address: [address] [place] [address] Telecom: Name: Jacek Phillips RN Position: [facility] RN Member Role: Primary Care Nurse Name: Denise Wrad RN Position: [facility] RN Member Role: Primary Care Nurse Name: Byron Granger LPN Position: [facility] RN Member Role: Primary Care Nurse Name: Shirley Pires RN Position: [facility] Hospital Food Tray Assembler Member Role: Primary Care Nurse Name: Samir Covington Jr, RN Position: [facility] RN Member Role: Primary Care Nurse Name: Boby Kline RN Position: [facility] RN Member Role: Primary Care Nurse Name: Pradeep Doyle RN Position: [facility] AMB Nurse Member Role: Primary Care Nurse Name: Lianet Pang RN Position: [facility] RN Member Role: Primary Care Nurse Name: Katelynn Westbrook RN Position: [facility] Outreach Member Role: Primary Care Nurse Name: Cuba Osorio RN Position: [facility] RN Member Role: Primary Care Nurse Name: Jill Rowan RN Position: [facility] Onco RN Member Role: Primary Care Nurse Name: Mariam Elliott RN Position: [facility] Onco RN Member Role: Primary Care Nurse Name: Elis Wu RN Position: [facility] RN Member Role: Primary Care Nurse Name: Jeanne Gonzalez RN Position: [facility] Onco RN Member Role: Primary Care Nurse Name: Erika Marques RN Position: [facility] Onco RN Member Role: Primary Care Nurse Name: Jaky James LPN Position: [facility] RN Member Role: Primary Care Nurse Name: Nuria Barr Position: [facility] RN Member Role: Primary Care Nurse Name: Francisco Ray RN Position: [facility] RN Member Role: Primary Care Nurse Name: Riley Looney RN Position: [facility] RN Member Role: Primary Care Nurse Name: Tomer Chaves RN Position: [facility] RN Member Role: Primary Care Nurse Name: Kalin Sandoval RN Position: [facility] Onco RN Member Role: Primary Care Nurse Name: Teresa Hassan RN Position: [facility] Onco RN Member Role: Primary Care Nurse Name: Tucker Lynn RN Position: [facility] SN RN Member Role: Primary Care Nurse Name: Enid Francis RN Position: [facility] Onco RN Member Role: Primary Care Nurse Name: Gabby Tee RN Position: [facility] RN Member Role: Primary Care Nurse Name: Violette Seals RN Position: [facility] Onco RN Member Role: Primary Care Nurse Name: Shahrzad Ashley LPN Position: [facility] RN Member Role: Primary Care Nurse Name: Mira Davis RN Position: [facility] RN Member Role: Primary Care Nurse Name: Gregg Mello RN Position: [facility] RN Member Role: Primary Care Nurse Name: Trina Mello RN Position: [facility] Hospital Food Tray Assembler Member Role: Primary Care Nurse Name: Yen Blunt RN, I Position: [facility] RN Member Role: Primary Care Nurse Care Team Related Persons Name: LOGAN BORGES Name: COLBY BORGES Insurance Providers Guarantor name: JEANNE JONY Health Plan Information #: 1 Payer: MEDICARE PART B OUTPT Member Number: [id number] Policy Number: NA Group Number: NA Health Plan Information #: 2 Payer: MEDEX Member Number: [id number] Policy Number: NA Group Number: NA
--- OUTSIDE RECORDS SUMMARY | 2024-08-10 14:01 | XMS_ITS | Data Portability ---
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 Procedures Surgical History Date Name Laterality Status Provider Name and Address Organization Details Recorded Time 7 22767: Therapeutic Exercise completed Sandra Mccullough, PT [address] [place], [address], [facility] 04/02/2016 13:24:25 7 38232: Therapeutic Exercise completed Sandra Mccullough, PT [address] [place], [address], [facility] 03/30/2016 07:44:48 7 10873: Manual Therapy completed Sandra Mccullough, PT [address] [place], [address], [facility] 03/30/2016 07:44:40 6 37217: Therapeutic Exercise completed Sandra Mccullough, PT [address] [place], [address], [facility] 03/20/2016 15:44:20 6 94566: PT Evaluation completed Sandra Mccullough, PT [address] [place], [address], [facility] 03/14/2016 12:35:12 6 38652: Therapeutic Exercise completed Sandra Mccullough, PT [address] [place], [address], [facility] 11/08/2015 16:31:07 6 50386: Ultrasound (1:1) completed Sandra Mccullough, PT [address] [place], [address], [facility] 11/08/2015 16:31:02 6 95700: Therapeutic Exercise completed Sandra Mccullough, PT [address] [place], [address], [facility] 11/06/2015 17:30:19 6 01965: Ultrasound (1:1) completed Sandra Mccullough, PT [address] [place], [address], [facility] 11/06/2015 17:30:10 6 09038: Therapeutic Exercise completed Sandra Mccullough, PT [address] [place], [address], [facility] 10/30/2015 13:57:38 6 45927: Manual Therapy completed Sandra Mccullough, PT [address] [place], [address], [facility] 10/30/2015 13:57:28 6 40597: Ultrasound (1:1) completed Sandra Mccullough, PT [address] [place], [address], [facility] 10/30/2015 13:56:10 6 32228: Manual Therapy completed Sandra Mccullough, PT [address] [place], [address], [facility] 10/26/2015 10:10:45 6 13312: Ultrasound (1:1) completed Sandra Mccullough, PT [address] [place], [address], [facility] 10/26/2015 10:09:45 6 54934: Therapeutic Exercise completed Sandra [facility]ccullough, PT [address] [facility] [place], [address], [facility] 10/25/2015 13:22:55 6 89603: Manual Therapy completed Sandra Mccullough, PT [address] [place], [address], [facility] 10/25/2015 13:22:47 6 77325: Ultrasound (1:1) completed Sandra Mccullough, PT [address] [facility] [place], [address], [facility] 10/25/2015 13:17:42 6 38255: Therapeutic Exercise completed Sandra Mccullough, PT [address] [facility] [place], [address], [facility] 10/18/2015 10:29:31 6 72394: Ultrasound (1:1) completed Sandra Mccullough, PT [address] [place], [address], [facility] 10/18/2015 10:29:26 6 94968: Therapeutic Exercise completed Sandra Mccullough, PT [address] [facility] [place], [address], [facility] 10/16/2015 16:32:47 6 47922: Ultrasound (1:1) completed Sandra Mccullough, PT [address] [place], [address], [facility] 10/16/2015 16:32:44 6 69230: PT Evaluation completed Sandra Mccullough, PT [address] [place], [address], [facility] 10/09/2015 19:01:11 5 <strong>Pain</s ashok> Assessment and Follow-up (G8730) completed Pao Pritchard, OT [address] [place], [address], [facility] 04/27/2014 13:33:32 5 <strong>Falls</ strong> Risk Assessment - No Risk (1101F) completed Pao Surjit Handyum, OT [address], [place], , [facility] 04/27/2014 13:33:32 5 <strong>Functio nal</strong> Outcome w/ POC (G8539) completed Pao Surjit Handyum, OT [address], [place], , [facility] 04/27/2014 13:33:32 5 <strong>Tobacco </strong> Non-User (1036F) completed Paobigg Handyum, OT [address] [place] [address], , [facility] 04/27/2014 13:33:32 5 <strong>BMI</st dominga> Normal - No Follow-up Required (G8420) completed Pao Handyum, OT [address], [place], , [facility] 04/27/2014 13:33:32 5 Current <strong>Medicat ions</strong> not Documented, Reason not Given (G8428) completed Pao Handyum, OT [address], [place], , [facility] 04/27/2014 13:33:32 Imaging Results None recorded. Procedure Notes None recorded. Medical Equipment None Reported. Allergies Allergen ID Allergen Name Allergen Category Reaction Reaction Severity Criticality Documentation Date Start Date Code Code System Note Provider Name and Address Organization Details Recorded Time 567911 Flagyl medicatio n Not available Not available Not available 07/03/2015 6 RxNorm Nikita Hinojosa DPM [address] [place], [place] [address], [address], [facility] 6 10:50:48 002191 Cipro medicatio n Not available Not available Not available 07/03/2015 3 RxNorm Nikita Hinojosa DPM [address] [place], [place] [address], 1[facility] 6 10:50:48 Medications Name Sig Start Date [...] SNOMED-CT Code Diagnosis ICD10 Code Diagnosis Note [id number] Pao Pritchard, OT Physical Therapy, [address] [address] 04/27/2014 12:17:38 04/28/2014 08:57:47 Fracture of distal end of radius 042566249 [id number] Pao Pritchard, OT Physical Therapy, [address] [address] 05/04/2014 09:32:33 05/04/2014 12:11:44 Fracture of distal end of radius 715898872 [id number] Pao Pritchard, OT Physical Therapy, [address] [address] 05/10/2014 09:59:59 05/11/2014 09:25:45 Fracture of distal end of radius 334286499 [id number] Pao Pritchard, OT Physical Therapy, [address] [address] 05/12/2014 10:02:05 05/12/2014 14:57:42 Fracture of distal end of radius 205107837 1398733 Pao Pritchard, OT Physical Therapy, [address] [address] 05/17/2014 10:25:32 05/18/2014 09:28:24 Fracture of distal end of radius 874611823 [id number] Pao Pritchard, OT Physical Therapy, [address] [address] 05/24/2014 09:57:49 05/24/2014 16:42:32 Fracture of distal end of radius 677182448 [id number] Pao Pritchard, OT Physical Therapy, [address] [address] 06/01/2014 10:01:05 06/02/2014 10:55:36 Fracture of distal end of radius 621406850 [id number] Pao Pritchard, OT Physical Therapy, [address] [address] 06/14/2014 09:57:06 06/14/2014 12:04:52 Fracture of distal end of radius 022189090 [id number] Pao Pritchard, OT Physical Therapy, [address] [address] 06/22/2014 14:51:12 06/22/2014 16:25:38 Fracture of distal end of radius 417753750 [id number] Pao Pritchard, OT Physical Therapy, [address] [address] 06/29/2014 16:23:16 06/30/2014 10:25:27 Fracture of distal end of radius 286407154 1015214 Nikita Hinojosa DPM Podiatry, [address] [address] 07/03/2015 09:54:29 07/03/2015 10:46:26 Metatarsalgia 33338546 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 67610510 M21.6X9 [id number] Nikita Hinojosa DPM Podiatry, [address] [address] 08/15/2015 08:23:44 08/15/2015 08:53:54 Metatarsalgia 70886493 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 60616384 M21.6X9 [id number] Nikita Hinojosa DPM Podiatry, [address] [address] 09/22/2015 08:55:52 09/22/2015 09:18:02 Metatarsalgia 59849786 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 48511093 M21.6X9 [id number] Sandra Mccullough PT Physical Therapy, [address] [address] 10/09/2015 16:27:12 10/10/2015 08:29:38 Pain of hip region 12533362 M25.990 [id number] Nikita Hinojosa DPM Podiatry, [address] [address] 10/13/2015 09:39:22 11/06/2015 16:38:09 Metatarsalgia 89451456 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 66165766 M21.6X9 [id number] Sandra Mccullough, PT Physical Therapy, [address] [address] 10/16/2015 15:47:05 10/16/2015 16:54:10 Pain of hip region 92223090 M25.567 [id number] Sandra Mccullough, PT Physical Therapy, [address] [address] 10/18/2015 09:25:24 10/18/2015 10:46:03 Pain of hip region 73469093 M25.724 [id number] Sandra Mccullough PT Physical Therapy, [address] [address] 10/24/2015 13:01:37 10/25/2015 13:45:27 Pain of hip region 59451867 M25.225 [id number] Sandra Mccullough, PT Physical Therapy, [address] [address] 10/26/2015 08:55:29 10/26/2015 09:29:57 Pain of hip region 92026889 M25.021 [id number] Sandra Mccullough PT Physical Therapy, [address] [address] 10/30/2015 09:00:20 10/30/2015 14:29:35 Pain of hip region 83857335 M25.619 [id number] Sandra Mccullough, PT Physical Therapy, [address] [address] 11/06/2015 16:52:24 11/07/2015 09:53:08 Pain of hip region 68692910 M25.046 [id number] Sandra Mccullough, PT Physical Therapy, [address] [address] 11/08/2015 15:57:05 11/09/2015 09:37:37 Pain of hip region 60015974 M25.542 [id number] Sandra Mccullough PT Physical Therapy, [address] [address] 03/14/2016 08:01:24 03/14/2016 14:29:28 Pain of hip region 04098401 M25.101 [id number] Sandra Mccullough, PT Physical Therapy, [address] [address] 03/20/2016 15:17:01 03/20/2016 16:03:47 Pain of hip region 65246223 M25.625 [id number] Sandra Mccullough PT Physical Therapy, [address] [address] 03/28/2016 08:55:27 04/01/2016 11:41:43 Pain of hip region 58955725 M25.830 [id number] Sandra Mccullough PT Physical Therapy, [address] [address] 04/02/2016 12:58:11 04/02/2016 14:10:56 Pain of hip region 68742934 M25.552 Health Concerns Section Related Observation LastModified by Organization Detai ls LastModified Time None Recorded Concern Status LastModified by Organization Details LastModified Time None Recorded Advance Directives Directive None Recorded Payers Encounter Date Sequence Insurance Name Policy Number Policy Crow Covered Member ID Crow Member ID Guarantor Name 11/08/2015 1 [place] [employer] Mariama K Adali [id number] A Mariama K Adali 11/08/2015 2 [facility] - [facility] (MEDICARE SUPPLEMENT) Mariama K [place] [id number] Mariama K Adali 03/14/2016 1 [place] [employer] Mariama K [place] [id number] A Mariama K Adali 03/14/2016 2 [facility] - [place] (MEDICARE SUPPLEMENT) Mariama K Adali [id number] Mariama K Adali 03/20/2016 1 [place] [employer] Mariama K [place] [id number] A Mariama K Adali 03/20/2016 2 [facility] - [place] (MEDICARE SUPPLEMENT) Mariama K Adali [id number] Mariama K Adali 03/28/2016 1 [place] [employer] Mariama Chen [place] [id number] A Mariama Chen Adali 03/28/2016 2 [facility] - [facility] (MEDICARE SUPPLEMENT) Mariama Chen [place] [id number] Mariama Chen Ad[place] 04/02/2016 1 [place] [employer] Mariama Chen Adali [id number] A Mariama Chen [place] 04/02/2016 2 [facility] - [place] (MEDICARE SUPPLEMENT) Mariama Chen Adali [id number] Mariama Chen Adali Notes Date Note Type Note Provider Name [...] good at present. Sandra Mccullough, PT [address] [place], [address], [facility] 03/14/2016 13:00:42 OBGyn Episode No OBEpisode recorded.
[2024-08-23 07:02] VITALS: BP 109/70; PULSE 80; RESP 16; TEMP 36.2; O2SAT 99
[2024-08-23] MEDS: Tetracaine HCl/PF 0.5% Oph Sol 4 ML DROPS 1 DROP EYE-RIGHT (07:04)
[2024-08-23 07:06] LABS: Hematocrit 39.3 % (37.0-47.0); Hemoglobin 11.7 g/dl (12.0-16.0); Mean Corpuscular HGB Conc 29.8 g/dl (31.0-35.0); Mean Corpuscular Volume 97.5 fL (80.0-98.0); Mean Platelet Volume 9.1 fL (9.4-12.3); Platelet Count 71 X10*3/uL (160-400); Red Blood Count 4.03 X10*6/uL (4.20-5.50); Red Cell Distribution Width 15.6 % (11.0-16.0)
[2024-08-23] MEDS: Tropicamide 1 % Ophth Sol 3 ML BTL 1 DROP EYE-RIGHT ×3 (07:06→07:14)
[2024-08-23] MEDS: Cyclopentolate 1 % Ophth Sol 2 ML DRPBTL 1 DROP EYE-RIGHT ×3 (07:06→07:14)
[2024-08-23] MEDS: Ketorolac Tromethamine 0.5% Op 5 ML DROPS 1 DROP EYE-RIGHT ×3 (07:07→07:15)
[2024-08-23] MEDS: Phenylephrine HCL 2.5% Oph SoL 2 ML BOTTLE 1 DROP EYE-RIGHT ×3 (07:08→07:16)
[2024-08-23] MEDS: Lactated Ringers 500 ML 50 ML IV (07:16)
--- NOTE | 2024-08-23 07:29 | HO.ANESPROP2 ---
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 Proteinuria Presence of permanent cardiac pacemaker Osteopenia Osteoarthrosis Numbness Non-ischemic cardiomyopathy Metastasis to liver Maintenance chemotherapy Back pain On anticoagulant therapy Ileostomy present Thyroid disease HTN (hypertension) Graves' disease Arthritis Abscess Diverticulitis of sigmoid colon CLL (chronic lymphocytic leukemia) History of chemotherapy Carcinoma of right ovary, stage 4 Atrial fibrillation Anxiety Family History Family history of problems with anesthesia: No Surgical History Surgical History (Updated 08/23/24 @ 06:48 by Yohana Meade RN) History of creation of ostomy H/O colonoscopy Hx of laparoscopy History of permanent cardiac pacemaker placement History of radiofrequency ablation procedure for cardiac arrhythmia History of bilateral total hip arthroplasty S/P JEANNIE-BSO History of Problems with Anesthesia: No Social History Social History Patient Tobacco Use Status: Never used Tobacco Use of substances other than those prescribed or required for medical reasons: No Advance Directives: No Advance Directives Information Provided: Yes Advance Directives on File: No Patient : No : No Meds Allergies Allergy/AdvReac Type Severity Reaction Status Date / Time amoxicillin Allergy Swelling Verified 08/03/24 08:26 azithromycin Allergy Unknown Verified 08/03/24 08:26 ciprofloxacin Allergy Confusion Verified 08/03/24 08:26 diclofenac [From Voltaren] Allergy Nausea Verified 08/03/24 08:26 doxycycline Allergy Unknown Verified 08/03/24 08:26 ertapenem Allergy Agitated Verified 08/03/24 08:26 Penicillins Allergy Hives Verified 08/03/24 08:26 prednisone Allergy Chest Pain Verified 08/03/24 08:26 Home Medications ?Medication ?Instructions ?Recorded ?Confirmed ?Last Taken ?Type acetaminophen 325 mg tablet 650 mg PO Q4H PRN Pain 08/03/24 08/03/24 Unknown History apixaban 5 mg tablet (Eliquis) 5 mg PO BID 08/03/24 08/03/24 08/23/24 History levothyroxine 100 mcg tablet 100 mcg PO DAILY 08/03/24 08/03/24 08/23/24 History lorazepam 0.5 mg tablet 0.5 mg PO DAILY PRN Anxiety 08/03/24 08/03/24 Unknown History multivitamin 1 tab PO DAILY 08/03/24 08/03/24 Unknown History Exam Height,Weight and Vital Signs: Height 5 ft 6.93 in Weight 65.8 kg Assessment and Plan Assessment Anesthesia Assessment: Chart Reviewed Final Anesthetic Review Family History of Problems with Anesthesia: No History of Problems with Anesthesia: No Documented by User: Ana Auguste DO 08/23/24 07:32 [facility] Past Medical History Medical History Port-A-Cath in place Transaminitis Thrombocytopenia 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 Proteinuria Presence of permanent cardiac pacemaker Osteopenia Osteoarthrosis Numbness Non-ischemic cardiomyopathy Metastasis to liver Maintenance chemotherapy Back pain On anticoagulant therapy Ileostomy present Thyroid disease HTN (hypertension) Graves' disease Arthritis Abscess Diverticulitis of sigmoid colon CLL (chronic lymphocytic leukemia) History of chemotherapy Carcinoma of right ovary, stage 4 Atrial fibrillation Anxiety Family History Family history of problems with anesthesia: No Surgical History Surgical History (Updated 08/23/24 @ 06:48 by Yohana Meade RN) History of creation of ostomy H/O colonoscopy Hx of laparoscopy History of permanent cardiac pacemaker placement History of radiofrequency ablation procedure for cardiac arrhythmia History of bilateral total hip arthroplasty S/P JEANNIE-BSO History of Problems with Anesthesia: No Social History Social History Patient Tobacco Use Status: Never used Tobacco Use of substances other than those prescribed or required for medical reasons: No Advance Directives: No Advance Directives Information Provided: Yes Advance Directives on File: No Patient : No : No Meds Allergies Allergy/AdvReac Type Severity Reaction Status Date / Time amoxicillin Allergy Swelling Verified 08/03/24 08:26 azithromycin Allergy Unknown Verified 08/03/24 08:26 ciprofloxacin Allergy Confusion Verified 08/03/24 08:26 diclofenac [From Voltaren] Allergy Nausea Verified 08/03/24 08:26 doxycycline Allergy Unknown Verified 08/03/24 08:26 ertapenem Allergy Agitated Verified 08/03/24 08:26 Penicillins Allergy Hives Verified 08/03/24 08:26 prednisone Allergy Chest Pain Verified 08/03/24 08:26 Home Medications ?Medication ?Instructions ?Recorded ?Confirmed ?Last Taken ?Type acetaminophen 325 mg tablet 650 mg PO Q4H PRN Pain 08/03/24 08/03/24 Unknown History apixaban 5 mg tablet (Eliquis) 5 mg PO BID 08/03/24 08/03/24 08/23/24 History levothyroxine 100 mcg tablet 100 mcg PO DAILY 08/03/24 08/03/24 08/23/24 History lorazepam 0.5 mg tablet 0.5 mg PO DAILY PRN Anxiety 08/03/24 08/03/24 Unknown History multivitamin 1 tab PO DAILY 08/03/24 08/03/24 Unknown History Exam Exam Date and Time: 08/23/24724 Height,Weight and Vital Signs: Height 5 ft 6.93 in Weight 65.8 kg Vital Signs Temperature 97.1 F 08/23/24 07:02 Pulse Rate 80 08/23/24 07:02 Respiratory Rate 16 08/23/24 07:02 Blood Pressure 109/70 08/23/24 07:02 Pulse Oximetry 99 08/23/24 07:02 Oxygen Delivery Method Room Air 08/23/24 07:02 Temperature 97.1 F 08/23/24 07:02 Pulse Rate 80 08/23/24 07:02 Respiratory Rate 16 08/23/24 07:02 Blood Pressure 109/70 08/23/24 07:02 Pulse Oximetry 99 08/23/24 07:02 Oxygen Delivery Method Room Air 08/23/24 07:02 Airway Mallampati Class: II TM Dist: >3cm Neck ROM: Full Loose/Missing/Broken Teeth: No (patient denies any loose or broken teeth) Heart: S1S2 Lungs: CTAB Assessment and Plan Assessment Anesthesia Assessment: Anesthesia Plan Discussed and Chart Reviewed Final Anesthetic Review Family History of Problems with Anesthesia: No History of Problems with Anesthesia: No NPO: Yes ASA Class: III Final Preanesthetic Review: No Changes in Pt Med Stat, Meds/Allgs Chart Reviewed, Consent Obtained/Reviewed and Anes Risks/Benef Reviewed Patient Risk: Intermediate Procedure Risk: Low Anesthetic Plan Anesthetic Plan: MAC: and Agree w/ Assess. and Plan Disposition: Standard PACU
--- NOTE | 2024-08-23 07:51 | P.PCNO_ITS ---
Ophthalmology Procedure Procedure Date of Service: 08/23/24 Ophthalmology Viscoelastic: Healon Duet Dual Pack Pro Ophthalmology Lenses: IOL Acrysof MP - [id number] (13) Procedure Notes: PREOPERATIVE DIAGNOSIS: Decreased visual acuity right eye secondary to cataract POSTOPERATIVE DIAGNOSIS: Same PROCEDURE: Right cataract extraction with intraocular lens insertion SURGEON: Jame Calderon M.D. ANESTHESIA: Topical/MAC ESTIMATED BLOOD LOSS: None COMPLICATIONS: None After obtaining informed consent, the patient was brought to the operating room suite and placed in the supine position. After adequate sedation per anesthesia, topical drops of Tetracaine were given to the right eye. The eye was then prepped and draped in the usual sterile fashion. The operating room microscope was then positioned over the operative eye and a lid speculum placed. A paracentesis was created. Viscoelastic was then instilled into the anterior chamber. A three plane incision was then created temporally, utilizing a 2.85 mm keratome. Capsulotomy forceps were then utilized to create a circular tear capsulotomy. Hydrodissection and hydrodelineation were carried out until adequate mobilization of the nucleus occurred. Phacoemulsification was then utilized to remove the dense central nucl eus followed by removal of the cortical material utilizing the automated aspiration irrigation unit. Viscoelastic was instilled into the posterior capsular bag followed by placement of a posterior chamber intraocular lens without difficulty. The residual Viscoelastic was then removed utilizing the automated IA machine. The wound was checked and found to be watertight. The patient tolerated the procedure well and the lid speculum was removed. Intracameral injection of Vigamox 0.1 mL followed by a subtenon injection of Kenalog-40 0.2 mL were administered. The patient will be seen in the a.m.
--- NOTE | 2024-08-23 07:54 | MHC.SHP ---
Pre-Procedural Eval Section A - 24 Hr Update-Section A only Date of Service: 08/23/24 The patient is an INPATIENT: No Changes since office visit: No Cold of Flu in the past 2 weeks, No New Medical Problems, No Changes in Medication and No Patient answered all questions The patient has been examined within 24 hours of the surgical procedure. The History & Physical has been completed within 30 days and I have reviewed it.: Yes Section B - Complete if H&P > 30 days Chief Complaint: Age-related nuclear cataract, right eye Allergies: Allergies Allergy/AdvReac Type Severity Reaction Status Date / Time amoxicillin Allergy Swelling Verified 08/03/24 08:26 azithromycin Allergy Unknown Verified 08/03/24 08:26 ciprofloxacin Allergy Confusion Verified 08/03/24 08:26 diclofenac [From Voltaren] Allergy Nausea Verified 08/03/24 08:26 doxycycline Allergy Unknown Verified 08/03/24 08:26 ertapenem Allergy Agitated Verified 08/03/24 08:26 Penicillins Allergy Hives Verified 08/03/24 08:26 prednisone Allergy Chest Pain Verified 08/03/24 08:26 Plan Diagnosis/Plan: Unchanged I have reviewed the history and physical and performed a pertinent physical examination on my patient. No changes have occurred unless specified. Time Spent With Patient Time: Total time managing care of this patient today ____ minutes.
[2024-08-23 08:19] VITALS: BP 103/55; PULSE 60; RESP 16; TEMP 36.5; O2SAT 100
== END 2024-08-23 08:47 | disposition home or self-care (01) ==
PROVIDERS: Nurse Practitioner; PCP Nurse Practitioner Family; Visit Provider Ophthalmology
PROC: (CPT 66985; principal; 2024-08-23 08:00)
DX: H25.11 Age-related nuclear cataract, right eye (principal); H52.4 Presbyopia; Z83.511 Family history of glaucoma; H40.013 Open angle with borderline findings, low risk, bilateral; H18.413 Arcus senilis, bilateral; H43.393 Other vitreous opacities, bilateral; E07.9 Disorder of thyroid, unspecified; C91.60 Prolymphocytic leukemia of T-cell type not having achieved remission; C56.1 Malignant neoplasm of right ovary; C78.7 Secondary malignant neoplasm of liver and intrahepatic bile duct; Z92.21 Personal history of antineoplastic chemotherapy; I10 Essential (primary) hypertension; I42.8 Other cardiomyopathies; I48.91 Unspecified atrial fibrillation; Z88.0 Allergy status to penicillin; Z88.1 Allergy status to other antibiotic agents; Z88.8 Allergy status to other drugs, medicaments and biological substances; Z79.01 Long term (current) use of anticoagulants; Z79.899 Other long term (current) drug therapy
CPT/HCPCS: 66984; 36415; 85027; J1642; J2250; J3301; V2630